=== PATIENT | male | born 2000 | race Caucasian/White ===

== ENCOUNTER 2018-02-05 18:04 | Emergency (ER) | payer BC ==
[2018-02-05 18:23] VITALS: BMI 30.1
[2018-02-05] MEDS ORDERED: SODIUM CHLORIDE 1,000 ML IV STA (18:24)
[2018-02-05] MEDS ORDERED: AMPICILLIN NA/SULBACTAM NA 3 GM in SODIUM CHLORIDE 100 ML IVPB ONE (18:35)
[2018-02-05] MEDS ORDERED: ACETAMINOPHEN 1000 MG/100 ML VIAL (NON FORMULARY) IVPB ONE (18:35)
[2018-02-05] MEDS ORDERED: ACETAMINOPHEN INJECTION 100 ML IVPB ONE (18:36)
--- NOTE | 2018-02-05 18:46 | PDOC ---
History of Present Illness - History of Present Illness Initial Comments: 02/05/18 18:47 The patient is a 17 year old male with past medical history of asthma, brought in by EMS for fever and syncope today. Patient woke up feeling hot with a mild headache and also noted tingling in his hands bilaterally. He went to class and then slept for a while, upon waking up he was brought to the nurse and had syncopized with the nurse stating he slowly fell to the ground and regained consciousness in seconds. He was found to be febrile to 102. A flu swap and rapid strep were done which were negative. In the ED, the patient is asymptomatic, but reports noticing a cyst near his right armpit 2 days ago which was red, warm, and had drained in the shower yesterday. He reports he often trims/shaves his underarms. He denies any associated chills, diaphoresis, neck stiffness, nausea, vomiting, diarrhea, cough, SOB, chest pain, or urinary complaints. Additionally, his girlfriend has been sick with a minor cold. <Katelin Naidu - Last Filed: 02/05/18 18:46> - General History Source: Patient Exam Limitations: No Limitations <Arturo Sandoval - Last Filed: 02/05/18 18:56> - General Chief Complaint: Respiratory Stated Complaint: fever,dehydration,weakness Time Seen by Provider: 02/05/18 18:07 Past History <Katelin Naidu - Last Filed: 02/05/18 18:46> - Past Medical History Asthma: Yes COPD: No Other medical history: pt denies - Immunization History Immunization Up to Date: Yes - Suicide/Smoking/Psychosocial Hx Smoking History: Never smoked Hx Alcohol Use: No Drug/Substance Use Hx: No Substance Use Type: None <Arturo Sandoval - Last Filed: 02/05/18 18:56> - Past Medical History Allergies/Adverse Reactions: Allergies Allergy/AdvReac Type Severity Reaction Status Date / Time No Known Allergies Allergy Verified 02/05/18 18:06 Home Medications: Ambulatory Orders Meloxicam 15 mg PO DAILY 02/05/18 Review of Systems - Review of Systems Able to Perform ROS?: Yes Comments:: 02/05/18 18:47 GENERAL/CONSTITUTIONAL: (+) fever. No chills. No weakness. HEAD, EYES, EARS, NOSE AND THROAT: No change in vision. No ear pain or discharge. No sore throat. CARDIOVASCULAR: No chest pain or shortness of breath. RESPIRATORY: No cough, wheezing, or hemoptysis. GASTROINTESTINAL: No nausea, vomiting, diarrhea or constipation. GENITOURINARY: No dysuria, frequency, or change in urination. MUSCULOSKELETAL: No joint or muscle swelling or pain. No neck or back pain. SKIN: No rash NEUROLOGIC: (+) syncope. No headache, vertigo or change in strength/sensation. ENDOCRINE: No increased thirst. No abnormal weight change. HEMATOLOGIC/LYMPHATIC: No anemia, easy bleeding, or history of blood clots. ALLERGIC/IMMUNOLOGIC: No hives or skin allergy. All Other Systems: Reviewed and Negative <Katelin Naidu - Last Filed: 02/05/18 18:46> *Physical Exam - Vital Signs Last Vital Signs Temp Pulse Resp BP Pulse Ox 102.6 F H 111 H 18 134/67 99 02/05/18 18:05 02/05/18 18:05 02/05/18 18:05 02/05/18 18:05 02/05/18 18:05 - Physical Exam Comments: 02/05/18 18:48 GENERAL: Febrile, Awake, alert, and fully oriented, in no acute distress HEAD: No signs of trauma EYES: PERRLA, EOMI, sclera anicteric, conjunctiva clear ENT: Auricles normal inspection, hearing grossly normal, nares patent, oropharynx clear without exudates. Dry mucous membranes NECK: Normal ROM, supple, no lymphadenopathy, JVD, or masses LUNGS: Breath sounds equal, clear to auscultation bilaterally. No wheezes, and no crackles HEART: Regular rate and rhythm, normal S1 and S2, no murmurs, rubs or gallops ABDOMEN: Soft, nontender, normoactive bowel sounds. No guarding, no rebound. No masses EXTREMITIES:(+) Open draining wound in right axilla with 4x4 cm area of induration and fluctuance, overlying erythema, and mild tenderness to touch Normal range of motion, no edema. No clubbing or cyanosis. No cords, erythema, or tenderness NEUROLOGICAL: Cranial nerves II through XII grossly intact. Normal speech, normal gait SKIN: Warm, Dry, normal turgor, no rashes <Katelin Naidu - Last Filed: 02/05/18 18:46> - Vital Signs Last Vital Signs Temp Pulse Resp BP Pulse Ox 102.6 F H 111 H 18 134/67 99 02/05/18 18:05 02/05/18 18:05 02/05/18 18:05 02/05/18 18:05 02/05/18 18:05 <Arturo Sandoval - Last Filed: 02/05/18 18:56> Heart Score/ECG Review #1 ECG reviewed & interpreted by me at: 19:00 02/05/18 18:55 NSR 115, nonspecific T wave abnormality II, III, avF, no ariana/std, QTC 453 msec. no brugada, no HOCM, no WPW. <Arturo Sandoval - Last Filed: 02/05/18 18:56> ED Treatment Course - LABORATORY CBC & Chemistry Diagram: 02/05/18 18:40 <Arturo Sandoval - Last Filed: 02/05/18 18:56> Medical Decision Making - Medical Decision Making 02/05/18 18:36 A portion of this note was documented by scribe services under my direction. I have reviewed the details of the note, within reason, and agree with the documentation with the following case summary and management plan written by me. Patient treated in the ED. Patient arrives by ambulance to the emergency department. Nursing notes are reviewed and incorporated into the medical decision-making. Vital signs reviewed. Peripheral IV access obtained by the nurse, laboratory studies are drawn and sent, reviewed and interpreted by myself. Vital Signs Temp Pulse Resp BP Pulse Ox 102.6 F H 111 H 18 134/67 99 02/05/18 18:05 02/05/18 18:05 02/05/18 18:05 02/05/18 18:05 02/05/18 18:05 17-year-old male with past medical history of asthma presents with fever and syncope. The patient reported that there was a positive sick contact with the patient's girlfriend having URI symptoms several days ago. However, the patient exhibited no URI symptoms now. The patient did note yesterday that he was developing a small abscess that was becoming larger. Patient does have history of shaving his armpits. Noted that his started draining today. Today, he started developing some generalized malaise send tactile fevers. He went to the school nurse where they performed a rapid strep and influenza swab was reportedly negative. However, the patient felt lightheaded and dizzy afterwards and had a very brief 1 second syncopal episode. This was witnessed by the school nurse and the patient did not hit his head. Patient denies any headache or neck stiffness. Does report some discomfort and rash at the right armpit. No nausea or vomiting or dysuria or diarrhea. I suspect patient likely has cellulitis of his right arm and a now and is straining right armpit abscess. I suspect that this is likely the culprit for the patient's illness. I am not concerned for meningitis or pneumonia or urinary tract infection at this time. We'll however, obtain blood work, blood cultures and initiate IV Unasyn. This is for presumed skin infection. I suspect syncope was secondary to vasovagal. We'll observe the patient and reassess. 02/05/18 18:56 Pt signed out to oncoming ED attending Dr. Mcmillan for further management and disposition. <Arturo Sandoval - Last Filed: 02/05/18 18:56> *DC/Admit/Observation/Transfer - Attestations Scribe Attestion: 02/05/18 18:50 Documentation prepared by Katelin Naidu, acting as medical representative for Arturo Sandoval MD. <Katelin Naidu - Last Filed: 02/05/18 18:46> <Arturo Sandoval - Last Filed: 02/05/18 18:56> - Discharge Dispostion Condition at time of disposition: Stable
[2018-02-05 18:51] LABS: MEAN PLT VOLUME 8.8 fl (7.5-11.1); RDW 11.9 % (11.9-15.9)
[2018-02-05 18:54] LABS: HEMOGLOBIN 15.4 GM/dl (11.7-16.9); MCH 30.6 pg (25.7-33.7); MCHC 34.1 g/dl (32.0-35.9); MEAN CELL VOLUME 89.8 fl (80-96); PLATELET COUNT 259 K/MM3 (134-434); RBC 5.01 M/mm3 (4.00-5.60); WHITE BLOOD COUNT 14.2 K/mm3 (4.0-10.8)
[2018-02-05] MEDS ORDERED: AMPICILLIN NA/SULBACTAM NA 3 GM VIAL ONE (18:58)
[2018-02-05 19:10] LABS: ALBUMIN 3.7 g/dl (3.5-5.0); ALK PHOS 73 U/L (32-92); ANION GAP 9 MMOL/L (8-16); BILIRUBIN,TOTAL 1.4 mg/dl (0.2-1.0); BLOOD UREA NITROGEN 20 mg/dl (7-18); CHLORIDE 103 mmol/L (98-107); CO2 25 mmol/L (22-28); CREATININE 1.2 mg/dl (0.6-1.3); GLUCOSE,RANDOM 155 mg/dl (74-106); POTASSIUM 4.2 mmol/L (3.5-5.1); SGOT/AST 33 U/L (10-42); SGPT/ALT 85 U/L (10-40); SODIUM 137 mmol/L (136-145); TOT PROT 6.5 g/dl (6.4-8.3)
[2018-02-05 19:50] LABS: PH,URINE 5.5 (4.5-8); URINE APPEARANCE Clear; URINE BILIRUBIN Negative (NEGATIVE); URINE COLOR Yellow; URINE GLUCOSE (UA) Negative (NEGATIVE); URINE KETONE Negative (NEGATIVE); URINE LEUK ESTERASE TRACE (NEGATIVE); URINE NITRITE Negative (NEGATIVE); URINE PROTEIN Negative (NEGATIVE)
[2018-02-05 21:13] LABS: URINE BACTERIA 1+ /hpf (NEGATIVE); URINE RBC 0-2 /hpf (0-3)
[2018-02-05 21:17] LABS: PLATELET ESTIMATE ADEQUATE
[2018-02-05 21:53] VITALS: BP 105/46; PULSE 105; TEMP 99.7
[2018-02-05] MEDS ORDERED: CEPHALEXIN MONOHYDRATE 500 MG CAPSULE (UD) PO ONE (21:53)
[2018-02-05] MEDS ORDERED: SULFAMETHOXAZOLE/TRIMETHOPRIM 800MG/160MG D.S. TABLET PO ONE ×2 (21:54→22:16)
[2018-02-05] MEDS ORDERED: CEPHALEXIN MONOHYDRATE 500 MG CAPSULE (UD) ONE (21:58)
[2018-02-05] MEDS ORDERED: SULFAMETHOXAZOLE/TRIMETHOPRIM 800MG/160MG D.S. TABLET ONE ×2 (21:58→22:21)
--- NOTE | 2018-02-05 22:09 | PDOC ---
*Physical Exam - Vital Signs Last Vital Signs Temp Pulse Resp BP Pulse Ox 99.7 F H 105 H 18 105/46 L 99 02/05/18 21:52 02/05/18 21:52 02/05/18 21:52 02/05/18 21:52 02/05/18 21:52 ED Treatment Course - LABORATORY CBC & Chemistry Diagram: 02/05/18 18:40 02/05/18 18:40 - ADDITIONAL ORDERS Additional order review: Laboratory Results 02/05/18 02/05/18 02/05/18 19:40 18:40 18:40 Sodium Potassium Chloride Carbon Dioxide Anion Gap BUN Creatinine Creat Clearance w eGFR Random Glucose Lactic Acid 2.1 H Calcium Total Bilirubin AST ALT Alkaline Phosphatase Troponin I < 0.03 Total Protein Albumin Urine Color Yellow Urine Appearance Clear Urine pH 5.5 Ur Specific Coy 1.020 Urine Protein Negative Urine Glucose (UA) Negative Urine Ketones Negative Urine Blood Negative Urine Nitrite Negative Urine Bilirubin Negative Urine Urobilinogen 1.0 Ur Leukocyte Esterase Trace H Urine RBC 0-2 Urine WBC 10-20 Urine Bacteria 1+ 02/05/18 18:40 Sodium 137 Potassium 4.2 Chloride 103 Carbon Dioxide 25 Anion Gap 9 BUN 20 H Creatinine 1.2 Creat Clearance w eGFR > 60 Random Glucose 155 H Lactic Acid Calcium 9.0 Total Bilirubin 1.4 H AST 33 ALT 85 H Alkaline Phosphatase 73 Troponin I Total Protein 6.5 Albumin 3.7 Urine Color Urine Appearance Urine pH Ur Specific Coy Urine Protein Urine Glucose (UA) Urine Ketones Urine Blood Urine Nitrite Urine Bilirubin Urine Urobilinogen Ur Leukocyte Esterase Urine RBC Urine WBC Urine Bacteria 02/05/18 18:40 RBC 5.01 MCV 89.8 MCHC 34.1 RDW 11.9 MPV 8.8 Neutrophils % No Result Required. Lymphocytes % No Result Required. - Medications Given in the ED: ED Medications Discontinued Medications Generic Name Dose Route Start Last Admin Trade Name Freq PRN Reason Stop Dose Admin Acetaminophen 1,000 mg 02/05/18 18:35 02/05/18 18:48 Ofirmev Injection - IVPB 02/05/18 18:36 1,000 mg ONCE ONE Administration Cephalexin HCl 500 mg 02/05/18 21:53 02/05/18 22:00 Keflex - PO 02/05/18 21:54 500 mg ONCE ONE Administration Sodium Chloride 1,000 mls @ 1,000 mls/hr 11/05/18 18:24 02/05/18 18:47 Normal Saline - IV 02/05/18 19:23 1,000 mls/hr ASDIR STA Administration Ampicillin Sodium/Sulbactam 100 mls @ 200 mls/hr 02/05/18 18:35 02/05/18 19: 00 Sodium 3 gm/ Sodium Chloride IVPB 02/05/18 19:04 200 mls/hr ONCE ONE Administration Trimethoprim/Sulfamethoxazole 1 each 02/05/18 21:54 02/05/18 22:00 Bactrim Ds - PO 02/05/18 21:55 1 each ONCE ONE Administration Medical Decision Making - Medical Decision Making 02/05/18 21:07 Care received at 1900 Briefly, pt presents with fever, presumed cellulitis from R axillary abscess. Pt also had vasovagal syncope (was getting flu swab, then felt warm, nauseous and tried to walk to bathroom subsequently passing out for 1-2 seconds, no HS, rapid return to baseline). On presentation, pt febrile, tachycardic. Also c/o b/ l hand numbness and redness since this morning, although improved now. Pt pending labs, re-eval, dispo at sign out Labs remarkable for leukocytosis to 14 and bandemia 7%. Lactate with mild elevation to 2.1. UA with 10 WBC, 1+ LE but pt with no urinary sxs. All cultures pending. No coughing, crackles, wheezing, SOB, hypoxia to suggest acute resp process. Repeat vitals after 2L NS with BP in low 100s (mom states his BP normally runs btwn 130s-140s - he has seen specialist at [facility] for HTN before but not placed on meds). Temp 99.6 orally, HR 105. R axilla with non fluctuant non draining abscess with surrounding warmth and erythema. Erythema also present b/l in hands. Objectively, normal sensation in hands b/l but pt stating he feels numbness. He does state erythema and numbness in both hands is improved since this morning. Cause of redness/numbness in hands b/l is unclear, however in light of persistent tachycardia, relatively low BP for pt (given baseline elevated BP), low grade temps, b/l hand erythema/numbness, bandemia 7%, there was a concern for possible early sepsis. As such, pt was offered observation overnight for further IV abx and observation. I also offered to c/s neurology given persistent numbness. Pt does not wish to stay for further iv abx, observation as he states he prefers to rest in his bed at home. The patient is clinically sober, free from distracting injury, appears to have intact insight and judgment and reason and in my opinion has the capacity to make decisions. The patient presents with cellulitis, fevers, tachycardia. I have explained that I am concerned that this may represent early systemic infection; he has verbalized an understanding of my concerns. I have discussed the need for observation to get more information about potential causes of the patients infection, hand redness/numbness. I have told the patient that if he leaves and has continued symptoms, he could get much worse, could become critically ill, and could possibly become disabled or . I have offered to give the patient more pain medication. I have discussed these concerns with the patients mother who is at the bedside and she is unable to convince them to stay for further evaluation. She states she will take him to her home tonight and keep a close eye on him. The patient is not willing to undergo observation for monitoring, and further IV abx. He is refusing any further care and is leaving against medical advice. I am unable to convince the patient to stay, I have asked him to return as soon as possible to complete his evaluation. I offered to call his PMD Dr. Maya Perez but he declines; mom states she will be able to get him in tomorrow for follow up. I have answered all their questions. *DC/Admit/Observation/Transfer Diagnosis at time of Disposition: Fever, Cellulitis, Numbness and tingling in both hands - Discharge Dispostion Disposition: AGAINST MEDICAL ADVICE Condition at time of disposition: Fair Decision to Admit order: No - Prescriptions Prescriptions: Cephalexin [Keflex] 500 mg PO QID 10 Days #40 capsule Sulfamethoxazole/Trimethoprim [Bactrim Ds Tablet] 2 each PO BID 14 Days #56 tablet - Referrals - Patient Instructions Printed Discharge Instructions: DI for Cellulitis -- Adult Additional Instructions: You are leaving against medical advice. This puts you at risk for worsening infection, numbness, disability or even . Return to the nearest emergency department at any time to complete your evaluation. Take the prescribed antibiotics. Follow up with Dr. Rojas tomorrow as discussed. - Post Discharge Activity - Attestations Physician Attestion: 02/05/18 22:13 I, Dr. Koko Mcmillan MD, attest that this document has been prepared under my direction and personally reviewed by me in its entirety. I further attest, that it accurately reflects all work, treatment, procedures and medical decision -making performed by me.
--- NOTE | 2018-02-06 12:10 | EKG ---
Test Reason : Blood Pressure : / mmHG Vent. Rate : 115 BPM Atrial Rate : 115 BPM P-R Int : 136 ms QRS Dur : 092 ms QT Int : 328 ms P-R-T Axes : 071 061 014 degrees QTc Int : 453 ms SINUS TACHYCARDIA NONSPECIFIC T WAVE ABNORMALITY ABNORMAL ECG Confirmed by MD GIDEON, JENNIFER ([id number]) on 02/06/2018 12:09:57 PM Referred By: JULIENNE Confirmed By:JENNIFER MENESES MD
== END 2018-02-05 22:24 | disposition left against medical advice (07) ==
LOC: FER 18:04
PROC: 3E0337Z Introduction of Electrolytic and Water Balance Substance into Peripheral Vein, Percutaneous Approach (ICD-10-PCS; principal; 2018-02-05)
PROC: 3E033NZ Introduction of Analgesics, Hypnotics, Sedatives into Peripheral Vein, Percutaneous Approach (ICD-10-PCS; 2018-02-05)
PROC: 3E03329 Introduction of Other Anti-infective into Peripheral Vein, Percutaneous Approach (ICD-10-PCS; 2018-02-05)
DX: L03.111 Cellulitis of right axilla (principal); R50.9 Fever, unspecified; R20.2 Paresthesia of skin; R20.0 Anesthesia of skin; J45.909 Unspecified asthma, uncomplicated
CPT/HCPCS: 36415; 80053; 81003; 81015; 83605; 84484; 85025; 87040; 87086; 93005; 99284-25; J0131; J7030